=== PATIENT | male | born 1980 ===

== ENCOUNTER 2020-09-21 13:23 | Emergency (ER) | payer OTHER ==
[~2020-09-21] VITALS: Ht 190.5 cm; Wt 111.4 kg
[2020-09-21 15:25] LABS: BASO % 0.4 % (0.0-2.0); EOS # 0.2 (0.0-0.7); EOS % 2.1 % (0-4.0); GRAN # 4.9 (1.4-6.5); GRAN % 62.5 % (42.2-75.2); HEMATOCRIT 41.9 % (42.0-52.0); HEMOGLOBIN 14.5 g/dl (13.5-18.0); LYMPH % 25.5 % (20.0-51.0); MEAN CELL VOLUME 89 fl (80.0-100.0); MEAN CORPUSCULAR HEMOGLOBIN 31 pg (27.0-31.0); MEAN CORPUSCULAR HGB CONC 35 g/dl (33.0-37.0); MONO # 0.7 (0.1-0.6); MONO % 9.2 % (1.7-9.3); PLATELET COUNT 330 K/mm3 (130-400); RED BLOOD COUNT 4.72 M/mm3 (4.20-5.60); REDCELL DISTRIBUTION WIDTH-CV 11.9 % (11.5-14.5)
[2020-09-21 15:36] LABS: ALBUMIN 4.6 gm/dL (3.5-5.0); BILIRUBIN,TOTAL 0.7 mg/dL (0.0-1.0); CALCIUM 9.3 mg/dL (8.4-10.2); CREATININE, serum 0.66 (0.66-1.25); TOTAL PROTEIN 8.2 gm/dL (6.4-8.2)
[2020-09-21 16:00] LABS: C-REACTIVE PROTEIN 2.9 mg/dL (0.0-0.9); URIC ACID 4.3 mg/dL (3.5-8.5)
[2020-09-21] MEDS ORDERED: VOLTAREN 75 DR75 MG PO (16:49)
[2020-09-21 16:54] VITALS: BP 148/64; PULSE 80; TEMP 98.7
[2020-09-22] MEDS ORDERED: VOLTAREN 75 DR75 MG PO (11:10)
== END 2020-09-21 16:54 | disposition home or self-care (01) ==
LOC: COL.ER 13:23
PROVIDERS: Family Medicine
DX: M19.072 Primary osteoarthritis, left ankle and foot (principal)

== ENCOUNTER 2020-09-26 14:15 | Emergency (ER) | payer OTHER ==
[~2020-09-26] VITALS: Ht 190.5 cm; Wt 109.1 kg
[~2020-09-26 14:15] MED LIST: VOLTAREN 75 DR75 MG PO
[2020-09-26 14:38] VITALS: BP 125/89; PULSE 89; TEMP 98.2
[2020-09-26 15:29] LABS: BASO % 0.4 % (0.0-2.0); EOS # 0.2 (0.0-0.7); EOS % 1.6 % (0-4.0); GRAN # 8.5 (1.4-6.5); GRAN % 74.4 % (42.2-75.2); HEMATOCRIT 38.5 % (42.0-52.0); HEMOGLOBIN 13.4 g/dl (13.5-18.0); LYMPH # 1.6 (1.2-3.4); LYMPH % 14.3 % (20.0-51.0); MEAN CELL VOLUME 89 fl (80.0-100.0); MEAN CORPUSCULAR HEMOGLOBIN 31 pg (27.0-31.0); MEAN CORPUSCULAR HGB CONC 35 g/dl (33.0-37.0); MEAN PLATELET VOLUME 9.2 fl (7.4-10.4); PLATELET COUNT 366 K/mm3 (130-400); RED BLOOD COUNT 4.32 M/mm3 (4.20-5.60); REDCELL DISTRIBUTION WIDTH-CV 11.8 % (11.5-14.5)
[2020-09-26 15:38] LABS: ALBUMIN 4.4 gm/dL (3.5-5.0); BILIRUBIN,TOTAL 0.7 mg/dL (0.0-1.0); CALCIUM 9.5 mg/dL (8.4-10.2); CREATININE, serum 0.67 (0.66-1.25); POTASSIUM 3.9 mmol/L (3.4-5.0); TOTAL PROTEIN 7.9 gm/dL (6.4-8.2)
[2020-09-26] MEDS ORDERED: PREDNISONE20 MG PO (15:39)
[2020-09-26 15:49] LABS: C-REACTIVE PROTEIN 12.8 mg/dL (0.0-0.9)
[2020-09-26 16:08] LABS: ERYTHROCYTE SEDIMENTATION RATE 37 mm/hr (0-15)
[2020-09-27 15:00] LABS: SJOGRENS SSB 11 U/mL (0-99)
== END 2020-09-26 14:22 | disposition home or self-care (01) ==
LOC: COL.ER 14:15
PROVIDERS: Family Medicine
DX: M19.90 Unspecified osteoarthritis, unspecified site (principal); D89.89 Other specified disorders involving the immune mechanism, not elsewhere classified